=== PATIENT | female | born 1935 | race Caucasian/White ===

== ENCOUNTER 2018-04-20 17:03 | Emergency (ER) | payer OTHER ==
[2018-04-20 17:33] VITALS: TEMP 97.9; BMI 24.5
[2018-04-20] MEDS ORDERED: ONDANSETRON 4 MG/2 ML VIAL IVPB ONE (17:39)
[2018-04-20] MEDS ORDERED: SODIUM CHLORIDE 1,000 ML IV STA (17:39)
[2018-04-20] MEDS ORDERED: morphine CARPU-JECT 4 MG/1 ML DISP.SYRIN IVPUSH ONE ×2 (17:39→18:42)
[2018-04-20] MEDS ORDERED: ONDANSETRON 4 MG/2 ML VIAL ONE (17:47)
[2018-04-20] MEDS ORDERED: morphine SULFATE 4 MG/ML VIAL ONE ×2 (17:47→18:43)
--- NOTE | 2018-04-20 17:49 | PDOC ---
History of Present Illness - General History Source: Patient Exam Limitations: No Limitations - History of Present Illness Initial Comments: 04/20/18 17:49 83-year-old female with past medical history of cholecystectomy, hypertension, hyperlipidemia, vertigo, "palpitations "presents from urgent care for rule out bowel obstruction. The patient reported in the last several days of having abdominal discomfort and decreased appetite. Noted that she's been having intermittent bowel movements. Last vomited today which was small. Reports some nausea but denies vomiting. No fevers or chills. However, patient has been complaining of diffuse abdominal pain. Patient went to an urgent care or she obtained an abdominal x-ray which demonstrated large stool burden with air fluids concerning for obstruction. Patient was sent to the ER for further evaluation. <Martin Merlos - Last Filed: 04/20/18 18:46> <Silvia Mckinley - Last Filed: 04/20/18 20:13> - General Chief Complaint: Pain Stated Complaint: diarrhea,vomiting an dabdominal pain Time Seen by Provider: 04/20/18 17:12 Past History - Past Medical History Cardiac Disorders: Yes COPD: No HTN: Yes - Suicide/Smoking/Psychosocial Hx Smoking History: Never smoked Hx Alcohol Use: No Drug/Substance Use Hx: No <Martin Merlos - Last Filed: 04/20/18 18:46> <Silvia Mckinley - Last Filed: 04/20/18 20:13> - Past Medical History Allergies/Adverse Reactions: Allergies Allergy/AdvReac Type Severity Reaction Status Date / Time No Known Allergies Allergy Verified 04/20/18 17:05 Home Medications: Ambulatory Orders Nifedipine [Nifedipine Xl] 120 mg PO DAILY 01/23/14 Apixaban [Eliquis] 5 mg PO BID 04/20/18 Cyanocobalamin [Vitamin B12 -] 100 mcg PO DAILY 04/20/18 Docusate Sodium [Colace] 100 mg PO BID #21 capsule 04/20/18 Losartan/Hydrochlorothiazide [Losartan-Hctz 100-12.5 mg Tab] 1 each PO DAILY 01/27 Metoprolol Succinate [Toprol Xl] 100 mg PO DAILY 04/20/18 Review of Systems - Review of Systems Able to Perform ROS?: Yes Comments:: 04/20/18 17:51 GENERAL/CONSTITUTIONAL: [No fever or chills. No weakness. No weight change.] HEAD, EYES, EARS, NOSE AND THROAT: [No change in vision. No ear pain or discharge. No sore throat.] CARDIOVASCULAR: [No chest pain or shortness of breath.] RESPIRATORY: [No cough, wheezing, or hemoptysis.] GASTROINTESTINAL: [No vomiting, diarrhea or constipation. No rectal bleeding.] + abdominal pain and nausea. GENITOURINARY: [No dysuria, frequency, or change in urination.] MUSCULOSKELETAL: [No joint or muscle swelling or pain. No neck or back pain.] SKIN AND BREASTS: [No rash or easy bruising.] NEUROLOGIC: [No headache, vertigo, loss of consciousness, or loss of sensation.] PSYCHIATRIC: [No depression or anxiety.] ENDOCRINE: [No increased thirst. No abnormal weight change.] HEMATOLOGIC/LYMPHATIC: [No anemia, easy bleeding, or history of blood clots.] ALLERGIC/IMMUNOLOGIC: [No hives or skin allergy. No latex allergy.] <Martin Merlos - Last Filed: 04/20/18 18:46> *Physical Exam - Vital Signs Last Vital Signs Temp Pulse Resp BP Pulse Ox 97.9 F 98 H 16 167/69 100 04/20/18 17:04 04/20/18 17:04 04/20/18 17:04 04/20/18 17:04 04/20/18 17:04 - Physical Exam Comments: 04/20/18 17:51 GENERAL: Awake, alert, and fully oriented, in no acute distress HEAD: No signs of trauma EYES: EOMI, sclera anicteric, conjunctiva clear ENT: Auricles normal inspection, hearing grossly normal, nares patent NECK: Normal ROM, supple, LUNGS: Breath sounds equal, clear to auscultation bilaterally. No wheezes, and no crackles HEART: Regular rate and rhythm, normal S1 and S2, no murmurs, rubs or gallops ABDOMEN: Soft, diffusely tender, but moreso tender in lower abdomen. No guarding, no rebound. No masses EXTREMITIES: Normal range of motion, no edema. No clubbing or cyanosis. No cords, erythema, or tenderness NEUROLOGICAL: Cranial nerves II through XII grossly intact. Normal speech, normal gait SKIN: Warm, Dry, normal turgor, no rashes or lesions noted. <Martin Merlos - Last Filed: 04/20/18 18:46> - Vital Signs Last Vital Signs Temp Pulse Resp BP Pulse Ox 97.9 F 73 18 163/67 100 04/20/18 17:04 04/20/18 18:51 04/20/18 18:51 04/20/18 18:51 04/20/18 18:51 <Silvia Mckinley - Last Filed: 04/20/18 20:13> Moderate Sedation - Procedure Monitoring Vital Signs: Procedure Monitoring Vital Signs Temperature 97.9 F 04/20/18 17:04 Pulse Rate 98 H 04/20/18 17:04 Respiratory Rate 16 04/20/18 17:04 Blood Pressure 167/69 04/20/18 17:04 O2 Sat by Pulse Oximetry (%) 100 04/20/18 17:04 <Martin Merlos - Last Filed: 04/20/18 18:46> - Procedure Monitoring Vital Signs: Procedure Monitoring Vital Signs Temperature 97.9 F 04/20/18 17:04 Pulse Rate 73 04/20/18 18:51 Respiratory Rate 18 04/20/18 18:51 Blood Pressure 163/67 04/20/18 18:51 O2 Sat by Pulse Oximetry (%) 100 04/20/18 18:51 <Silvia Mckinley - Last Filed: 04/20/18 20:13> Heart Score/ECG Review #1 ECG reviewed & interpreted by me at: 17:35 04/20/18 17:53 NSR 86, no std/rina, normal axis, normal intervals, QTC 459 msec Nonspecific T wave abnormality <Martin Merlos - Last Filed: 04/20/18 18:46> ED Treatment Course - LABORATORY CBC & Chemistry Diagram: 04/20/18 17:43 04/20/18 17:43 - RADIOLOGY Radiology Studies Ordered: Category Date Time Status ABDOMEN & PELVIS CT WITH CONTR [CT] Stat CT Scan 04/20/18 17:36 Ordered <Martin Merlos - Last Filed: 04/20/18 18:46> - LABORATORY CBC & Chemistry Diagram: 04/20/18 17:43 04/20/18 17:43 - ADDITIONAL ORDERS Additional order review: Laboratory Results 04/20/18 04/20/18 04/20/18 18:58 17:43 17:43 PT with INR INR PTT (Actin FS) Sodium Potassium Chloride Carbon Dioxide Anion Gap BUN Creatinine Creat Clearance w eGFR Random Glucose Lactic Acid 1.2 Calcium Total Bilirubin AST ALT Alkaline Phosphatase Troponin I < 0.03 Total Protein Albumin Lipase Urine Color Yellow Urine Appearance Clear Urine pH 8.5 H Ur Specific Coin 1.015 Urine Protein Negative Urine Glucose (UA) Negative Urine Ketones Negative Urine Blood Negative Urine Nitrite Negative Urine Bilirubin Negative Urine Urobilinogen 0.2 Ur Leukocyte Esterase Negative 04/20/18 04/20/18 17:43 17:43 PT with INR 16.3 H INR 1.47 H PTT (Actin FS) 29.8 Sodium 134 L Potassium 3.3 L Chloride 100 Carbon Dioxide 25 Anion Gap 9 BUN 33 H Creatinine 1.1 Creat Clearance w eGFR 47.67 Random Glucose 113 H Lactic Acid Calcium 9.1 Total Bilirubin 0.6 AST 28 ALT 18 Alkaline Phosphatase 87 Troponin I Total Protein 7.6 Albumin 4.1 Lipase 126 Urine Color Urine Appearance Urine pH Ur Specific Coin Urine Protein Urine Glucose (UA) Urine Ketones Urine Blood Urine Nitrite Urine Bilirubin Urine Urobilinogen Ur Leukocyte Esterase 04/20/18 17:43 RBC 3.68 MCV 89.4 MCHC 34.0 RDW 13.2 MPV 7.5 Neutrophils % No Result Required. Lymphocytes % No Result Required. - Medications Given in the ED: ED Medications Discontinued Medications Generic Name Dose Route Start Last Admin Trade Name Freq PRN Reason Stop Dose Admin Sodium Chloride 1,000 mls @ 1,000 mls/hr 04/20/18 17:39 04/20/18 18:00 Normal Saline - IV 04/20/18 18:38 1,000 mls/hr ASDIR STA Administration Morphine Sulfate 4 mg 04/20/18 17:39 04/20/18 17:59 Morphine Injection - IVPUSH 04/20/18 17:40 4 mg ONCE ONE Administration Morphine Sulfate 4 mg 04/20/18 18:42 04/20/18 18:50 Morphine Injection - IVPUSH 04/20/18 18:43 4 mg ONCE ONE Administration Ondansetron HCl 4 mg 04/20/18 17:39 04/20/18 18:00 Zofran Injection IVPB 04/20/18 17:40 4 mg ONCE ONE Administration <Silvia Mckinley - Last Filed: 04/20/18 20:13> Medical Decision Making - Medical Decision Making 04/20/18 17:52 A portion of this note was documented by scribe services under my direction. I have reviewed the details of the note, within reason, and agree with the documentation with the following case summary and management plan written by me. Patient treated in the ED. Nursing notes are reviewed and incorporated into the medical decision-making. Vital signs reviewed. Peripheral IV access obtained by the nurse, laboratory studies are drawn and sent, reviewed and interpreted by myself. Vital Signs Temp Pulse Resp BP Pulse Ox 97.9 F 98 H 16 167/69 100 04/20/18 17:04 04/20/18 17:04 04/20/18 17:04 04/20/18 17:04 04/20/18 17:04 The patient's findings are concerning for potential bowel obstruction. We'll obtain labs and urinalysis but will need CAT scan the abdomen pelvis for further evaluation. Pain control and reassess. 04/20/18 18:46 CBC, BMP 04/20/18 17:43 04/20/18 17:43 CMP Sodium 134 mmol/L (136-145) L 04/20/18 17:43 Potassium 3.3 mmol/L (3.5-5.1) L 04/20/18 17:43 Chloride 100 mmol/L (98-107) 04/20/18 17:43 Carbon Dioxide 25 mmol/L (21-32) 04/20/18 17:43 Anion Gap 9 MMOL/L (8-16) 04/20/18 17:43 BUN 33 mg/dl (7-18) H 04/20/18 17:43 Creatinine 1.1 mg/dl (0.55-1.3) 04/20/18 17:43 Creat Clearance w eGFR 47.67 (>60) 04/20/18 17:43 Random Glucose 113 mg/dl (74-106) H 04/20/18 17:43 Calcium 9.1 mg/dl (8.5-10) 04/20/18 17:43 Total Bilirubin 0.6 mg/dl (0.2-1) 04/20/18 17:43 AST 28 U/L (15-37) 04/20/18 17:43 ALT 18 U/L (13-61) 04/20/18 17:43 Alkaline Phosphatase 87 U/L (45-117) 04/20/18 17:43 Troponin I < 0.03 ng/ml (0.00-0.05) 04/20/18 17:43 Total Protein 7.6 g/dl (6.4-8.2) 04/20/18 17:43 Albumin 4.1 g/dl (3.4-5.0) 04/20/18 17:43 04/20/18 18:46 Pt signed out to Dr. Slivia Guidry for further evaluation and management. <Martin Merlos - Last Filed: 04/20/18 18:46> - Medical Decision Making 04/20/18 20:11 Received pt on signout from Dr. Merlos. CTAP negative for SBO, + moderate constipatoin. on reeval, pt feeling much better, having bowel movements in ER, tolerating PO. abd soft, NTND. OK for DC home w/ bowel regimen <Silvia Mckinley - Last Filed: 04/20/18 20:13> *DC/Admit/Observation/Transfer <Martin Merlos - Last Filed: 04/20/18 18:46> <Silvia Mckinley - Last Filed: 04/20/18 20:13> Diagnosis at time of Disposition: Constipation - Discharge Dispostion Disposition: HOME Condition at time of disposition: Good - Prescriptions Prescriptions: Docusate Sodium [Colace] 100 mg PO BID #21 capsule - Patient Instructions Additional Instructions: Prescriptions have been sent to your pharmacy for COLACE 2x daily. After 2-3 days, if this is not helping you have regular bowel movenets, OK to increase to 3x daily with meals. Drink plenty of fluids eat foods high in Fiber. Follow up with you regular doctor next week.
[2018-04-20 18:11] LABS: HEMOGLOBIN 11.2 GM/dl (10.7-15.3)
[2018-04-20 18:13] LABS: ACTIVATED PTT 29.8 SECONDS (25.2-36.5); ALBUMIN 4.1 g/dl (3.4-5.0); ALK PHOS 87 U/L (45-117); ANION GAP 9 MMOL/L (8-16); BILIRUBIN,TOTAL 0.6 mg/dl (0.2-1); BLOOD UREA NITROGEN 33 mg/dl (7-18); CALCIUM 9.1 mg/dl (8.5-10); CHLORIDE 100 mmol/L (98-107); CO2 25 mmol/L (21-32); CREATININE 1.1 mg/dl (0.55-1.3); GLUCOSE,RANDOM 113 mg/dl (74-106); INR 1.47 (0.82-1.09); POTASSIUM 3.3 mmol/L (3.5-5.1); PROTHROMBIN TIME (PATIENT) 16.3 SEC (10.2-13.0); SGOT/AST 28 U/L (15-37); SGPT/ALT 18 U/L (13-61); SODIUM 134 mmol/L (136-145); TOT PROT 7.6 g/dl (6.4-8.2)
[2018-04-20 18:14] LABS: HEMATOCRIT 32.9 % (32.4-45.2); MCH 30.4 pg (25.7-33.7); MEAN CELL VOLUME 89.4 fl (80-96); MEAN PLT VOLUME 7.5 fl (7.5-11.1); PLATELET COUNT 398 K/MM3 (134-434); RBC 3.68 M/mm3 (3.60-5.2); RDW 13.2 % (11.6-15.6); WHITE BLOOD COUNT 11.6 K/mm3 (4.0-10.8)
[2018-04-20 18:52] VITALS: BP 163/67; PULSE 73
[2018-04-20 19:02] LABS: PH,URINE 8.5 (4.5-8); URINE APPEARANCE Clear; URINE BILIRUBIN Negative (NEGATIVE); URINE COLOR Yellow; URINE GLUCOSE (UA) Negative (NEGATIVE); URINE KETONE Negative (NEGATIVE); URINE LEUK ESTERASE Negative (NEGATIVE); URINE NITRITE Negative (NEGATIVE); URINE PROTEIN Negative (NEGATIVE); URINE UROBILINOGEN 0.2 (0.2-1.0)
[2018-04-20 19:27] LABS: LIPASE 126 U/L (73-393)
[2018-04-20] MEDS ORDERED: SODIUM PHOSPHATE/NA BIPHOS 133 ML ENEMA PR ONE (20:10)
[2018-04-20] MEDS ORDERED: DOCUSATE SODIUM 100 MG CAPSULE (FP) PO ONE ×2 (20:10→20:23)
[2018-04-20 20:49] LABS: PLATELET ESTIMATE SLT INCREASE
[2018-04-20] MEDS ORDERED: SENNOSIDES 8.6MG TABLET (FP) PO SCH (22:00)
--- NOTE | 2018-04-21 10:22 | EKG ---
Test Reason : Blood Pressure : / mmHG Vent. Rate : 086 BPM Atrial Rate : 086 BPM P-R Int : 140 ms QRS Dur : 070 ms QT Int : 384 ms P-R-T Axes : 058 034 073 degrees QTc Int : 459 ms POOR DATA QUALITY, INTERPRETATION MAY BE ADVERSELY AFFECTED NORMAL SINUS RHYTHM POSSIBLE LEFT ATRIAL ENLARGEMENT NONSPECIFIC T WAVE ABNORMALITY ABNORMAL ECG NO PREVIOUS ECGS AVAILABLE Confirmed by EDER POND, SHAWN ([id number] on 04/21/2018 10:21:47 AM Referred By: DR DAVID Confirmed By:SHAWN GAINES MD
== END 2018-04-20 20:52 | disposition home or self-care (01) ==
LOC: FER 17:03
PROC: 3E033NZ Introduction of Analgesics, Hypnotics, Sedatives into Peripheral Vein, Percutaneous Approach (ICD-10-PCS; principal; 2018-04-20)
PROC: 3E033GC Introduction of Other Therapeutic Substance into Peripheral Vein, Percutaneous Approach (ICD-10-PCS; 2018-04-20)
PROC: 3E0337Z Introduction of Electrolytic and Water Balance Substance into Peripheral Vein, Percutaneous Approach (ICD-10-PCS; 2018-04-20)
DX: K59.00 Constipation, unspecified (principal); I10 Essential (primary) hypertension
CPT/HCPCS: 36415; 74177-TC; 80053; 81003; 83605; 83690; 84484; 85025; 85610; 85730; 93005; 96361; 96374; 96375; 96376; 99283-25; J7030